=== PATIENT | male | born 1980 | race Caucasian/White ===

== ENCOUNTER 2016-10-12 15:25 | Emergency (ER) | payer BC, OTHER ==
--- NOTE | ~2016-10-12 | CR17 ---
[facility] A Service of [facility] RADIOLOGY TEXT RESULTS PATIENT: EBER TAVERAS LOCATION: SED : [birth year] UNIT #: [id number] AGE: [address]: Little Allen PAC SEX: M ORDER DR: [id number] [place] [id number] E MR#: [id number] Acc #: [id number] NAME: EBER TAVERAS : 1980 SEX: M STUDY DATE/TIME: 10/12/2016 15:51 UNIT: SED ROOM: STUDY DESCRIPTION: CR Ankle 2 Views Lt Attending Physician: Quentin Oates Ordering Physician: Quentin Oates MEDICAL IMAGING REPORT This report is preliminary unless electronic signature is present. EXAM Left ankle, 10/12/2016 HISTORY A 36-year-old male with left ankle pain beginning today. No specific injury. COMPARISON Left foot same date. FINDINGS Three views of the left ankle demonstrate no acute fracture or dislocation. Ankle mortise symmetric. Talar dome intact. Questionable mild lateral ankle soft tissue swelling. IMPRESSION Questionable mild lateral ankle soft tissue swelling. No acute fracture or dislocation Dictated by... Renaldo Ng M.D. THIS IS AN ELECTRONICALLY VERIFIED REPORT Renaldo Ng M.D. at 10/15/2016 7:16 AM CARLA/marely TD: 10/12/2016 23:46 JOB #: [id number] MEDICAL IMAGING REPORT [facility] A Service of [facility] RADIOLOGY TEXT RESULTS PATIENT: EBER TAVERAS LOCATION: SED : 82 UNIT #: [id number] AGE: [address]: Little Allen PAC SEX: M ORDER DR: Page 1 of 1
--- NOTE | ~2016-10-12 | CR126 ---
[facility] A Service of [facility] RADIOLOGY TEXT RESULTS PATIENT: EBER TAVERAS LOCATION: SED : 82 UNIT #: [id number] AGE: [address]: Little Allen SEX: M ORDER DR: [id number] [place] [id number] E MR#: [id number] Acc #: [id number] NAME: EBER TAVERAS : 1980 SEX: M STUDY DATE/TIME: 10/12/2016 15:57 UNIT: SED ROOM: STUDY DESCRIPTION: CR Foot Complete Min 3 View Lt Attending Physician: Quentin Oates Ordering Physician: Quentin Oates MEDICAL IMAGING REPORT This report is preliminary unless electronic signature is present. EXAM Left foot 10/12/2016 HISTORY 36-year-old male with left foot pain beginning today. No specific injury. COMPARISON Left ankle same date. FINDINGS 3 views of the left foot demonstrate no acute fracture or dislocation. There is some questionable mild lateral ankle soft tissue swelling. No joint effusion. IMPRESSION Questionable mild lateral ankle soft tissue swelling. No evidence of acute fracture or dislocation. Dictated by... Renaldo Ng M.D. THIS IS AN ELECTRONICALLY VERIFIED REPORT Renaldo Ng M.D. at 10/15/2016 7:16 AM CARLA/darian TD: 10/12/2016 23:40 JOB #: [id number] MEDICAL IMAGING REPORT Page 1 of 1
[2016-10-12] MEDS ORDERED: KLOR-CON (15:50)
[2016-10-12] MEDS ORDERED: LASIX (15:50)
[2016-10-12] MEDS ORDERED: SIMETHICONE125 M1 (15:50)
[2016-10-12] MEDS ORDERED: BASAGLAR K100 UNIT/1 (15:50)
== END 2016-10-12 16:41 | disposition home or self-care (01) ==
LOC: SED 15:25
DX: M25.572 Pain in left ankle and joints of left foot (principal); I10 Essential (primary) hypertension; E11.9 Type 2 diabetes mellitus without complications
CPT/HCPCS: 29540; 73600; 73630; 99283